=== PATIENT | male | born 1990 | race Caucasian/White ===

== ENCOUNTER → 2021-03-03 | Outpatient (CLI) | payer OTHER, SELFPAY | END | disposition home or self-care (01) | PROVIDERS: Visit Provider Physician Assistant | DX: Z20.822 Contact with and (suspected) exposure to COVID-19 (principal) | CPT/HCPCS: 87635; U0005; U0003 ==

== ENCOUNTER 2022-12-07 20:04 | Observation (INO) | payer SELFPAY ==
[2022-12-07 20:05] VITALS: BP 131/86; PULSE 69; RESP 18; TEMP 36.9; O2SAT 98; BMI 25.1
--- NOTE | 2022-12-07 20:19 | CT_ITS ---
We are attempting to reach an attending provider to discuss findings. An addendum with communication details will be sent when the communication is complete. STUDY: CT ABDOMEN AND PELVIS WITH CONTRAST REASON FOR EXAM: Male, 32 years old. Right lower quadrant abdominal pain with anorexia RADIATION DOSAGE (If Supplied By Facility): CTDIvol = ( 11.03 ) mGy, DLP = ( 710.27 ) mGycm TECHNIQUE: Transaxial images were obtained from the dome of the diaphragm to the symphysis pubis without oral contrast. IV 100mL Isovue-370 was administered. Sagittal and coronal images were reconstructed. Individualized dose optimization techniques were used for this CT. COMPARISON: None. FINDINGS: The visualized lung bases are unremarkable. The visualized portions of the heart are within normal limits. Normal liver. Normal gallbladder and extrahepatic biliary system. Normal spleen. Normal pancreas. Normal bilateral adrenal glands. Normal right kidney. Normal left kidney. Suspect extrarenal pelvis of the kidneys bilaterally. Normal visualized stomach. Normal small intestine. Normal colon. There is a tubular, thick-walled appendix (>7mm), consistent with acute appendicitis. No loculated fluid collection to suggest abscess. No pneumoperitoneum to 6 perforation. Normal abdominal aorta. Normal inferior vena cava. Normal retroperitoneum. Normal urinary bladder. Normal abdominal wall. Normal osseous structures. CT/Abdomen/Pelvis W IV Cont ONLY IMPRESSION: Acute appendicitis without abscess or perforation. Electronically Signed: Vincent Mcpherson MD at 22:15 EDT ,
[2022-12-07] MEDS: 0.9% Normal Saline 1,000 ML 1000 ML IV (20:49)
[2022-12-07] MEDS: Ondansetron 4 MG/2 ML Vial IV (20:49)
[2022-12-07 20:56] LABS: Bacteria 0 SEEN /hpf (None Seen); Mucous, Urine 0 SEEN /hpf (<or=2+); Red Blood Cells-Urine 0 SEEN /hpf (0-5); Squamous Epithelial Cells - UA 0 SEEN /hpf (0-5)
[2022-12-07 20:59] LABS: Absolute Lymphocyte Count 1.24 X10^3/uL (0.83-4.51); Absolute Neutrophil Count 9.3 X10^3/uL (2.0-7.7); Basophil# 0.03 X10^3/uL; Basophil% 0.3 % (0-1); Eosinophil# 0.09 X10^3/uL; Eosinophils% 0.8 % (0-5); Hemoglobin 13.8 g/dL (13.0-16.5); Lymphocyte # 1.24 X10^3/ul (0.83-4.51); Lymphocyte % 10.8 % (19-41); Mean Corp Hgb Conc 34.5 g/dL (32-36); Mean Corpuscular Hgb 29.2 pg (27.0-32.0); Mean Corpuscular Volume 84.6 fL (80-94); Mean Platelet Vol. 9.5 fl (6.2-12.0); Monocyte# 0.77 X10^3/uL; Monocyte% 6.7 % (0-10); NRBC Flagged by Analyzer 0 % (0-5); Neutrophil % 81.2 % (47-70); Platelet Count 209 K/mm3 (150-450); RBC Distribution Width CV 12.4 % (11.6-14.6); RBC Distribution Width SD 37.8 fl (35.1-43.9); Red Blood Count 4.73 M/mm3 (4.6-6.2); White Blood Count 11.5 K/mm3 (4.4-11.0)
[2022-12-07 21:12] LABS: Color, Urine Yellow (Yellow); Glucose, Dipstick Normal (Normal); Ketone-Dipstick 50 mg/dl (Negative); Leukocyte Esterase-Dipstick 25 /ul (Negative); Nitrite-Dipstick Negative (Negative); Occult Blood-Urine Negative /ul (Negative); Protein-Dipstick 15 mg/dl (Negative); Urine Bilirubin Dipstick Negative (Negative); Urine Clarity Clear (Clear); Urine Urobilinogen Normal (Normal)
[2022-12-07 21:17] LABS: Anion Gap 5 (5-15); BUN 13 mg/dL (7-18); BUN/Creat Ratio 14.4 RATIO (10-20); Calcium,Total 9.2 mg/dL (8.5-10.1); Chloride 107 mmol/L (98-107); EST Glomerular Filtration Rate 102 mL/min (>60); Est Glom Filt Rate - Afr Amer 124 mL/min (>60); Estimated Creatinine Clearance 126.94 ml/min; Glucose 98 mg/dL (74-106); Potassium 4.1 mmol/L (3.5-5.1); Sodium Level 139 mmol/L (136-145)
[2022-12-07 21:25] LABS: White Blood Cells 0-5 SEEN /hpf (0-5)
--- NOTE | 2022-12-07 21:42 | EDS_ITS ---
HPI HPI - GI History of Present Illness Chief Complaint: Abd Pain Detail of Chief Complaint: Periumbilical pain that radiates to the right side with anorexia Informant: patient Abdominal Pain/Flank Pain Onset: Today (At approximately noon) Context: Sudden Onset Timing: Continuous Quality: Aching Location: - (Periumbilical that radiates to the right lower quadrant) Current Severity: Mild Maximum Severity: Moderate Worsened by: Car ride and Movement Relieved by: Nothing Nausea/Vomiting/Emesis GI Symptom: Positive for Nausea; Negative for Vomiting Diarrhea/Melena/Hematochezia GI Symptom: Negative for Diarrhea, Melena or Hematochezia Associated Symptoms Associated Symptoms: Negative for Dysuria, Frequency, Hematuria or Urgency Narrative Narrative: Patient is a 32-year-old male who presents with periumbilical pain that is now rating to the right lower quadrant associated with nausea and lack of appetite. Patient last ate at noon. He had water prior to arrival. He did not eat dinner because he has no appetite. He denies fever. He denies dysuria, frequency, urgency or hematuria. Patient denies intolerance to greasy or fried foods. Patient denies history of renal ureterolithiasis. Patient states the pain is worse with walking. He has no history inflammatory bowel disorder. He denies blood or mucus in his stool or diarrhea. Prior similar symptoms: No Recent Illness/Hospitalization: No PFSH PFSH Medical History (Updated 12/07/22 @ 22:[address] Narciso Watson MD) Encounter for screening for COVID-19 Medical History no medical history no medical history Allergy/AdvReac Type Severity Reaction Status Date / Time No Known Allergies Allergy Verified 12/07/22 21:48 Surgical History no surgical history no surgical history Social History (Updated 12/07/22 @ 21:[address] Narciso Watson MD) household members: family Smoking Status: Never smoker substance use type: does not use ROS ROS ED Constitutional Constitutional ED: Denies chills, fever(s), subjective, sweats or weight loss ENT ENT ED: Denies ear pain, rhinorrhea or sore throat Cardiovascular Cardiovascular: Denies chest pain, palpitations or racing heartbeat Respiratory/Chest Respiratory/Chest: Denies cough, dyspnea or dyspnea on exertion Gastrointestinal Gastrointestinal: Reports abdominal pain, nausea and other Details: Anorexia ; Denies constipation, diarrhea, melena or vomiting Genitourinary Genitourinary ED: Denies dysuria, hematuria or urinary frequency Musculoskeletal Musculoskeletal: Denies arthralgias, back pain, myalgias or neck pain Integumentary Denies rash Neurologic Neurologic: Denies headache(s) or paresthesias Psychiatric Psychiatric: Denies anxiety or depression Endocrine Endocrinology: Denies polydipsia, polyphagia or polyuria Hematologic/Lymphatic Hematologic/Lymphatic: Denies easy bleeding or easy bruising EXAM Physical Exam Const Vital Signs: 12/07/22 20:05 Temperature 98.5 F Temperature Source Temporal Pulse Rate 69 Respiratory Rate 18 Blood Pressure 131/86 H Blood Pressure Mean 101 Pulse Ox 98 Oxygen Delivery Method Room Air Positive well nourished and well developed General Appearance ED: well developed and NAD; Negative for pallor HEENT Reports TM's clear and moist mucous membranes normocephalic and atraumatic Tympanic Membrane ED: Yes TM's clear Eyes PERRL and EOMs intact bilaterally General Eye ED: Negative for pale conjunctiva or scleral icterus Neck no lymphadenopathy, supple and no JVD Resp normal respiratory effort and clear to auscultation bilaterally Cardio regular rate, regular rhythm, S1 normal heart sound, S2 normal heart sound and no murmurs GI non-distended and no masses; Negative for non-tender Inspection: Negative for abdominal distention Auscultation: hypoactive bowel sounds Palpation: soft, tender RLQ and guarding RLQ; Negative for rigid, hepatomegaly, splenomegaly, hernia, mass or pulsatile mass Back/Spine no CVA tenderness Thoracic Spine / Upper Back: Negative for thoracic spinal tenderness Lumbar Spine / Lower Back: Negative for lumbar spinal tenderness Extremity full ROM General Extremety ED: Negative for edema or tenderness General Extremity: Negative for edema Neuro CN's II-XII intact bilaterally, moves all extremities and no sensory deficits noted Sensorium / Orientation: alert Psych mental status grossly normal and thought process normal Skin no wounds General Skin Exam: Negative for jaundice or pallor Lesions: no lesions Rashes: no rashes MDM MDM MDM Narrative Medical decision making narrative: With pain migraine to right lower quadrant anorexia nausea and tenderness to McBurney's point concern patient has appendicitis. CBC, electrolyte panel was obtained and CT of the abdomen pelvis with IV contrast. Differential also would include regional enteritis, mesenteric adenitis, obstipation. Lab Data Attestation: I reviewed the patient's lab results. Lab results narrative: White count is elevated shift. There is no bandemia. Electrolyte panel is unremarkable. Urine is negative for blood. It is positive for ketones Labs: Laboratory Results - last 24 hr 12/07/22 20:37 WBC 11.5 H RBC 4.73 Hgb 13.8 Hct 40.0 MCV 84.6 MCH 29.2 MCHC 34.5 RDW Std Deviation 37.8 RDW Coeff of Luis 12.4 Plt Count 209 MPV 9.5 Immature Gran % (Auto) 0.200 Neut % (Auto) 81.2 H Lymph % (Auto) 10.8 L [place] % (Auto) 6.7 Eos % (Auto) 0.8 Baso % (Auto) 0.3 Absolute Neuts (auto) 9.3 H Absolute Lymphs (auto) 1.24 Nucleated RBC % 0 Sodium 139 Potassium 4.1 Chloride 107 Carbon Dioxide 27.0 Anion Gap 5 BUN 13 Creatinine 0.90 Estim Creat Clear Calc 126.94 Est GFR (MDRD) Af Amer 124 Est GFR (MDRD) Non-Af 102 BUN/Creatinine Ratio 14.4 Glucose 98 Calcium 9.2 Urine Color Yellow Urine Clarity Clear Urine pH 6.0 Ur Specific [place] 1.020 Urine Protein 15 H Urine Glucose (UA) Normal Urine Ketones 50 H Urine Occult Blood Negative Urine Nitrite Negative Urine Bilirubin Negative Urine Urobilinogen Normal Ur Leukocyte Esterase 25 H Urine RBC 0 SEEN Urine WBC 0-5 SEEN Ur Squamous Epith Cells 0 SEEN Urine Bacteria 0 SEEN Urine Mucus 0 SEEN Radiography Diagnostic Testing: Clinical Impression(s) from Imaging Studies Abdomen/Pelvis CT 12/07/22 20:19 IMPRESSION: Acute appendicitis without abscess or perforation. Electronically Signed: Vincent Mcpherson MD at 22:15 EDT , Treatment and Re-Evaluation :: Dr. Buddy Graham was contacted. He will be in to see patient. Since patient has localized peritoneal findings he received 4.5 g of Zosyn in the emergency department. Discharge Plan Triage Chief Complaint: Abd Pain ED Provider: WalterNarciso Dx/Rx/DC Orders Clinical Impression: Acute appendicitis with localized peritonitis Primary Care Provider: Care Physician,No Primary Referrals: Care Physician,No Primary [Primary Care Provider] - Disposition Disposition: Acute Care [facility]
[2022-12-07 22:44] VITALS: BP 130/78; PULSE 72; RESP 17; TEMP 37.3; O2SAT 98; BMI 25.1
[2022-12-07 22:50] VITALS: BP 130/78; PULSE 77; RESP 17; TEMP 37.3; O2SAT 98
--- NOTE | 2022-12-07 23:42 | PCM.HP.STD ---
HPI - General General Date of Admission: 12/07/22 Date of Service: 12/07/22 Chief Complaint: Acute onset abdominal pain HPI Narrative MAYA RAMOS, is a 32 M who presents to [facility] with his parents for complaints of acute onset abdominal pain approximately 12 hours ago while at work. He states the pain began with a periumbilical distribution but gradually migrated to the right lower quadrant such that he no longer has any of his central pain. He notes some associated nausea but no fevers or chills. He has not had a bowel movement since last evening. He was able to tolerate lunch, but has now lost an appetite. Mr. Ramos confirms a history of prior abdominal discomfort about 25 years ago and his mother details that he actually required a hospital admission to rule out appendicitis. They note that his counts dropped and therefore he was granted discharged home. Mr. Ramos is otherwise healthy with no significant past medical history apart from a wrist fracture that was operatively repaired. He works as a campaign assistant. [facility] Medical History (Updated 12/07/22 @ 22:47 by Gia Pedraza) Encounter for screening for COVID-19 Left wrist fracture Medical History no medical history Home Medications NK 12/07/22 [History Last Taken Unknown] Allergy/AdvReac Type Severity Reaction Status Date / Time No Known Allergies Allergy Verified 12/07/22 21:48 Surgical History no surgical history Social History (Updated 12/07/22 @ 21:[address] Narciso Watson MD) household members: family Smoking Status: Never smoker substance use type: does not use ROS Constitutional Constitutional: Reports anorexia; Denies chills or fever(s) Gastrointestinal Gastrointestinal: Reports abdominal pain, constipation and nausea; Denies diarrhea or vomiting Vital Signs Vital Signs Vital Signs: 12/07/22 20:05 12/07/22 22:44 12/07/22 22:50 Temperature 98.5 F 99.1 F 99.1 F Temperature Source Temporal Oral Oral Pulse Rate 69 72 77 Respiratory Rate 18 17 17 Blood Pressure 131/86 H 130/78 H 130/78 H Blood Pressure Mean 101 95 95 Blood Pressure Source Monitor Blood Pressure Position Semi-Fowlers Blood Pressure Location Right Arm Pulse Ox 98 98 98 Oxygen Delivery Method Room Air Room Air Room Air Weight Weight: 185 lb 3.013 oz Body Mass Index (BMI) 25.1 Physical Exam Const alert, oriented x3 and no apparent distress General Appearance: cooperative Resp normal respiratory effort GI GI Narrative: Slender, no scars, nondistended. Soft with tenderness to palpation over McBurney's point. Negative obturator sign. Negative Rovsing sign. Positive psoas sign. Results Lab / Micro Data 12/07/22 20:37 12/07/22 20:37 Labs: Laboratory Results - last 24 hr 12/07/22 20:37: WBC 11.5 H, RBC 4.73, Hgb 13.8, Hct 40.0, MCV 84.6, MCH 29.2, MCHC 34.5, RDW Std Deviation 37.8, RDW Coeff of Luis 12.4, Plt Count 209, MPV 9.5, Immature Gran % (Auto) 0.200, Neut % (Auto) 81.2 H, Lymph % (Auto) 10.8 L, [place] % (Auto) 6.7, Eos % (Auto) 0.8, Baso % (Auto) 0.3, Absolute Neuts (auto) 9.3 H, Absolute Lymphs (auto) 1.24, Nucleated RBC % 0, Sodium 139, Potassium 4.1, Chloride 107, Carbon Dioxide 27.0, Anion Gap 5, BUN 13, Creatinine 0.90, Estim Creat Clear Calc 126.94, Est GFR (MDRD) Af Amer 124, Est GFR (MDRD) Non-Af 102, BUN/Creatinine Ratio 14.4, Glucose 98, Calcium 9.2, Urine Color Yellow, Urine Clarity Clear, Urine pH 6.0, Ur Specific [place] 1.020, Urine Protein 15 H, Urine Glucose (UA) Normal, Urine Ketones 50 H, Urine Occult Blood Negative, Urine Nitrite Negative, Urine Bilirubin Negative, Urine Urobilinogen Normal, Ur Leukocyte Esterase 25 H, Urine RBC 0 SEEN, Urine WBC 0-5 SEEN, Ur Squamous Epith Cells 0 SEEN, Urine Bacteria 0 SEEN, Urine Mucus 0 SEEN Radiology Impression Abdomen/Pelvis CT 12/07/22 20:19 IMPRESSION: Acute appendicitis without abscess or perforation. Electronically Signed: Vincent Mcpherson MD at 22:15 EDT , ADDENDUM: 12/07/222226 IMPRESSION: Acute appendicitis without abscess or perforation. N.B. : The above Results were Read Back by Vincent Mcpherson MD to AYDIN Trinidad, and understanding confirmed on 12/07/2022 22:21:04 (ET). Electronically Signed: Vincent Mcpherson MD at 22:15 EDT , Assessment & Plan Assessment/Plan (1) Acute appendicitis with localized peritonitis: PLAN: This is a 32-year-old, otherwise healthy, male who presents with 12-hour history of signs and symptoms of acute appendicitis. Patient has mild leukocytosis of 11.5 with left shift. Further, CT imaging of the abdomen and pelvis shows thick-walled appendix without apparent perforation. Finally, patient's exam demonstrates tenderness over McBurney's point as well as positive psoas sign. Given the above I have counseled Mr. Ramos about his diagnosis and described the treatment options?including antibiotics alone?but provided my recommendation for proceeding with laparoscopic appendectomy. Mr. Ramos accepts this recommendation and we will plan to proceed urgently to the operating room first thing in the morning. For now he will be admitted to observation status with n.p.o. status and IV antibiotics as well as IV pain medicine. Charges/Coding Visit Charges Inpatient E&M: 68431 Init Hosp L2
[2022-12-08] VITALS (9 sets, daily range): BP systolic 110–139; BP diastolic 59–74; PULSE 65–88; RESP 16–18; TEMP 36.6–37; O2SAT 94–99; BMI 24.8; BMI 25.0
[2022-12-08] MEDS: 0.9% Normal Saline 1,000 ML 125 ML IV ×2 (01:01→08:54)
[2022-12-08] MEDS: HYDROmorphone 0.5 MG/0.5 ML SYRINGE IV (01:41)
[2022-12-08] MEDS: 0.9% Saline Lock 10 ML Syringe IV (01:41)
--- NOTE | 2022-12-08 05:00 | EKG12_ITS ---
Test Reason : PRE-OP Blood Pressure : / mmHG Vent. Rate : 077 BPM Atrial Rate : 077 BPM P-R Int : 140 ms QRS Dur : 086 ms QT Int : 374 ms P-R-T Axes : 067 004 038 degrees QTc Int : 423 ms Normal sinus rhythm Normal ECG No previous ECGs available Confirmed by JACOB SHRESTHA, JW ([id number]), film editor supervisor CALLI RIDLEY ([id number]) on 12/09/2022 9:24:40 AM Referred By: DR WINKLER Confirmed By:JW JAMES MD
--- NOTE | 2022-12-08 06:20 | APP_PTH ---
PATIENT: MAYA RAMOS LOC: MS3 U#:[id number] AGE/SX: 32/M ROOM: [facility] [place] RE12/07/[address]: Dr. Buddy Graham MD : 1990 BED: 1 DIS: 12/08/2022 SPEC #: [id number] RECD: 12/08/22 08:50 STATUS: RONY CHANTELLE #: [id number] ALMITA: 12/08/22 06:[address]: Buddy Graham DEPT: SURGICAL PATHOLOGY RECD BY: Mar Champion ENTERED: 12/08/22 09:48 SP TYPE: APPENDIX OT DR: No Primary Care Phys Tissues: Appendix, NOS Procedures: Surgery Specimen Level III HEADER OPERATION: Laparoscopic appendectomy PRE-OP DIAGNOSIS: Acute appendicitis with localized peritonitis TISSUE SUBMITTED: Appendix MICROSCOPIC DIAGNOSIS Appendix, appendectomy: Acute appendicitis and periappendicitis. KAYLIN:uli 12/09/2022 MICROSCOPIC DESCRIPTION Slides are reviewed. GROSS DESCRIPTION Received in fixative is one container labeled with the patient's name and designated appendix. The specimen consists of an appendix measuring 6.5 cm in length and 0.7 cm in average diameter. No gross perforations are identified. Serial sections reveal a patent lumen. No mass lesion is identified. Wooden Furniture Polisher sections are submitted in one cassette. / AM:uli 12/08/2022 TC:2 CPT: [id number]
[2022-12-08] MEDS: Bupivacaine Mpf 0.5% 30 ML VIAL INFILT (06:40)
--- NOTE | 2022-12-08 07:27 | OP.PCM_ITS ---
Report of Operation Date of Procedure: 12/08/22 Pre-Operative Diagnosis: Acute appendicitis Post-Operative Diagnosis: Acute, uncomplicated appendicitis Surgery/Procedure Performed:: Laparoscopic appendectomy Description of Surgical Findings:: ? Acutely inflamed but nonperforated appendix Surgeon: Buddy Graham granite installer: None Type of Anesthesia: General/Supplemental Anesthesiologist: Roosevelt Josue Specimen's removed: Appendix Drains: None Estimated Blood Loss (mL): 5 Description of Procedure: After appropriate identification in the preoperative holding area, the patient was brought to the operating room and placed supine on the operating room table. Scheduled antibiotics were redosed as patient entered the operating room. Patient was then induced with general endotracheal anesthetic. The abdomen was prepped and draped in usual sterile fashion. Formal timeout was conducted to confirm both the patient and the procedure. A supraumbilical incision was made and carried down to the level of the fascia which was sharply opened. After opening the peritoneum in like fashion a finger sweep was made to confirm position, and a balloon trocar was placed and pneumoperitoneum was established to 15 mmHg. Patient was positioned in Trendelenburg with the left side down. 2 additional 5 mm trocars were placed in the left lower quadrant and suprapubic positions. The peritoneum was inspected and there are no signs of inadvertent injury from this Pires entry. The appendix was visualized with moderate degree of inflammation and adherent inflammatory exudate but no signs of perforation. Using a harmonic scalpel the mesoappendix was incised to promote mobility of the appendix then using blunt laparoscopic dissection, a window was made in the mesoappendix adjacent to the appendiceal base. Then the base of the appendix was sealed and amputated with the use of an Endo DYAN stapler. The remaining mesoappendix was divided with the harmonic scalpel. Then the appendix was placed in an Endo Catch bag. The staple line was inspected for hemostasis and found to be intact so the appendix was removed from the umbilical port site. Serous fluid was suctioned free of the peritoneum. Pneumoperitoneum was then evacuated and the supraumbilical port site fascia was closed with #1 Vicryl in a [id number] fashion. The port sites were infiltrated with 30 mL local anesthetic. The skin of each port site was closed with 4-0 Monocryl in a subcuticular fashion. Steri-Strips and OpSite dressings were applied. Patient tolerated procedure well without any apparent complications. They were awoken from general anesthetic without issue and transferred to post anesthesia care unit for ongoing recovery. Grafts/Implants Used: None Complications None Admit VTE Documentation VTE Mechan Device Prophylaxis: SCD's Procedures Digestive 40xxx-49xxx: 95991 Laparoscopy appendectomy
--- NOTE | 2022-12-08 11:19 | DCINST_ITS ---
Discharge Instructions Diet Discharge Diet: No restrictions Activity Discharge Activity: May Not Drive (May not drive while taking narcotic pain medications) and May Shower (May begin showering 48hours postop. Please avoid baths or submerging surgical incisions before skin is completely healed.) May shower in (days): 2 May resume sexual activity in: 2 weeks Ice area for (Minutes): 20 Lifting Restrictions: Limit lifting to <15lbs for 2 weeks following surgery Dressing / Incision Call your doctor if your incision/area has: Sudden Increased Bleeding, Increased Pain/ Swelling, Increased Redness, Foul Smelling Discharge and Swelling at the incision site Call your doctor if you observe: Fever of 101 or Higher, Inability to urinate, Inability to have a bowel movement and Uncontrolled pain Suture Line Care: Avoid Pulling/Pushing Remove Dressing in: 2 days (Please leave steri strips (medical tape) in place until they fall off spontaneously or are removed at your follow-up appointment) Cleanse incision/area with: Keep Dressing Clean & Dry Additional Dressing/Incision Instructions:: Please leave Steri-Strips intact until they fall off spontaneously or are taken off at your follow-up visit Follow Up Care Please Follow Up With: Buddy Graham MD When: 2 weeks postop Test Results: Test results from this visit will be discussed in further detail at your follow- up appointment, if applicable. Discharge Plan Admission Admit Date/Time: 12/07/22 23:39 Primary Reason for Your Visit: Acute appendicitis Attending Provider: Buddy Graham Primary Care Provider: Anshul Physician,Yolanda Primary Discharge Orders/Prescriptions Prescriptions: New hydrocodone-acetaminophen 5-325 mg Tablet 1 tab PO Q6H PRN PRN (Reason: Pain Score 6-10) 3 Days Qty: 14 0RF No Action NK Referrals / Follow Up: Care Physician,No Primary [Primary Care Provider] - Disposition Disposition (needs filled in before D/C Order can be placed): Home, Self Care
--- NOTE | 2022-12-08 11:23 | DS.PCM_ITS ---
Providers Date of Admission: 12/07/22 Primary Care Physician: No Primary Care Phys Reason For Visit: ACUTE APPENDICITIS Diagnosis Discharge Diagnosis (1) Acute appendicitis with localized peritonitis: Status: Acute Code(s): K35.30 - Acute appendicitis with localized peritonitis, without perforation or gangrene Plan: This is a 32-year-old, otherwise healthy, male who presents with 12-hour history of signs and symptoms of acute appendicitis. Patient has mild leukocytosis of 11.5 with left shift. Further, CT imaging of the abdomen and pelvis shows thick-walled appendix without apparent perforation. Finally, patient's exam demonstrates tenderness over McBurney's point as well as positive psoas sign. Quan rosario the above I have counseled Mr. Cruz about his diagnosis and described the treatment options?including antibiotics alone?but provided my recommendation for proceeding with laparoscopic appendectomy. Mr. Cruz accepts this recommendation and we will plan to proceed urgently to the operating room first thing in the morning. For now he will be admitted to observation status with n.p.o. status and IV antibiotics as well as IV pain medicine. Medications at Discharge Home Medications NK 12/07/22 hydrocodone-acetaminophen 5-325mg 5mg-325mg 1 tab PO Q6H PRN PRN Pain Score 6-10 3 days #14 tabs 12/08/22 Hospital Course Operations appendectomy Procedures None Summary of Care Provided Hospital Course: This is a 32-year-old male who presented on 12/07/2022 to [facility] ER with signs and symptoms of acute appendicitis. Given this diagnosis laparoscopic appendectomy was recommended and he was taken for this procedure in the morning of 12/08/2022. Procedure proceeded in uncomplicated fashion and patient was returned to the surgical floor for ongoing observation. While on the floor he had excellent postop pain control and tolerated advancement of his diet. Therefore he was granted discharged home after reviewing postoperative expectations?including activity restrictions and wound care. Expectation was also set for outpatient follow-up in 2 weeks. Physical Exam Const alert, oriented x3 and no apparent distress Resp normal respiratory effort GI GI Narrative: Operative dressings in place with minimal strikethrough. There is some bruising to the right to the patient's supraumbilical incision. Patient has no tenderness with palpation. Weight / BMI Weight Weight: 184 lb 11.958 oz Body Mass Index (BMI) 25.0 ABG / Lab / Microbiology Data 12/07/22 20:37 12/07/22 20:37 Laboratory: Laboratory Results - last 24 hr 12/07/22 20:37: WBC 11.5 H, RBC 4.73, Hgb 13.8, Hct 40.0, MCV 84.6, MCH 29.2, MCHC 34.5, RDW Std Deviation 37.8, RDW Coeff of Luis 12.4, Plt Count 209, MPV 9.5, Immature Gran % (Auto) 0.200, Neut % (Auto) 81.2 H, Lymph % (Auto) 10.8 L, [place] % (Auto) 6.7, Eos % (Auto) 0.8, Baso % (Auto) 0.3, Absolute Neuts (auto) 9.3 H, Absolute Lymphs (auto) 1.24, Nucleated RBC % 0, Sodium 139, Potassium 4.1, Chloride 107, Carbon Dioxide 27.0, Anion Gap 5, BUN 13, Creatinine 0.90, Estim Creat Clear Calc 126.94, Est GFR (MDRD) Af Amer 124, Est GFR (MDRD) Non-Af 102, BUN/Creatinine Ratio 14.4, Glucose 98, Calcium 9.2, Urine Color Yellow, Urine Clarity Clear, Urine pH 6.0, Ur Specific [place] 1.020, Urine Protein 15 H , Urine Glucose (UA) Normal, Urine Ketones 50 H, Urine Occult Blood Negative, Urine Nitrite Negative, Urine Bilirubin Negative, Urine Urobilinogen Normal, Ur Leukocyte Esterase 25 H, Urine RBC 0 SEEN, Urine WBC 0-5 SEEN, Ur Squamous Epith Cells 0 SEEN, Urine Bacteria 0 SEEN, Urine Mucus 0 SEEN Radiography Diagnostic Testing: Radiology Impression Abdomen/Pelvis CT 12/07/22 20:19 IMPRESSION: Acute appendicitis without abscess or perforation. Electronically Signed: Vincent Mcpherson MD at 22:15 EDT , ADDENDUM: 12/07/222226 IMPRESSION: Acute appendicitis without abscess or perforation. N.B. : The above Results were Read Back by Vincent Mcpherson MD to AYDIN [place], and understanding confirmed on 12/07/2022 22:21:04 (ET). Electronically Signed: Vincent Mcpherson MD at 22:15 EDT , D/C Instructions Discharge Diet: No restrictions May shower in (days): 2 May resume sexual activity in: 2 weeks Ice area for (Minutes): 20 Call your doctor if your incision/area has: Sudden Increased Bleeding, Increased Pain/ Swelling, Increased Redness, Foul Smelling Discharge and Swelling at the i ncision site Call your doctor if you observe: Fever of 101 or Higher, Inability to urinate, Inability to have a bowel movement and Uncontrolled pain Suture Line Care: Avoid Pulling/Pushing Cleanse incision/area with: Keep Dressing Clean & Dry Additional Dressing/Incision Instructions: Please leave Steri-Strips intact until they fall off spontaneously or are taken off at your follow-up visit Please Follow Up With: Buddy Graham MD When: 2 weeks postop Meaningful Use Info Meaningful Use Diagnoses (Choose all that apply): None applicable Discharge Plan Admission Admit Date/Time: 12/07/22 23:39 Primary Reason for Your Visit: Acute appendicitis Attending Provider: Buddy Graham Primary Care Provider: Care Physician,Yolanda Primary Discharge Orders/Prescriptions Prescriptions: New hydrocodone-acetaminophen 5-325 mg Tablet 1 tab PO Q6H PRN PRN (Reason: Pain Score 6-10) 3 Days Qty: 14 0RF No Action NK Referrals / Follow Up: Care Physician,Yolanda Primary [Primary Care Provider] - Disposition Disposition (needs filled in before D/C Order can be placed): Home, Self Care Charges/Coding Visit Charges Inpatient E&M: 54289 Disch Hosp
[2022-12-08] MEDS: HYDROcodone Bitartrate/Apap 5/325 Tablet PO (12:32)
== END 2022-12-08 12:50 | disposition home or self-care (01) ==
LOC: ED 23:56 → MS3 23:57
PROVIDERS: Admitting Provider Surgery; Emergency Provider Emergency Medicine; Visit Provider Surgery
PROC: 0DTJ4ZZ Resection of Appendix, Percutaneous Endoscopic Approach (ICD-10-PCS; CPT 44970; principal; 2022-12-08 06:00)
DX: K35.30 Acute appendicitis with localized peritonitis, without perforation or gangrene (principal)
CPT/HCPCS: 44970; 00840; 74177; 80048; 81001; 85025; 88304; 93005; 96361; 96365; 96375; 99221; 99284; J7030; Q9967; A4216; G0378; J2405